=== PATIENT | male | born 1990 | race Caucasian/White ===

== ENCOUNTER 2016-08-26 20:35 | Emergency (ER) | payer OTHER ==
--- NOTE | 2016-08-26 22:43 | ED ORDER SUMMARY ---
..... 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
--- NOTE | 2016-08-26 22:43 | ED CLINICAL REPORT ---
Clinical Report - Physicians/Mid Levels [facility] [address] [place] [address] 08/26/2016 20:39 [id number] Time Seen: 21:18 Aug 26 2016. Arrived- By private vehicle. Historian- patient. HISTORY OF PRESENT ILLNESS Chief Complaint: COUGH. This started just prior to arrival and is still present. The illness is described as mild. The patient has had sputum production, a cough, nasal congestion, sinus drainage and a nasal discharge. No difficulty breathing, chest discomfort, fever or muscle aches. Additional history - The patient has had contact with a sick individual. (Patient here reports cough congestion fevers, body aches or arthralgias, was seen in the urgent care clinic, negative rapid influenza, however started treatment of tamiflu. fevers at home. NO hemoptysis. no foreign travel.). REVIEW OF SYSTEMS No headache, nausea, vomiting, hay fever or pedal edema. No calf pain. All systems otherwise negative, except as recorded above. PAST HISTORY Problems: Suicidal Ideation. Immunizations. Depression. Suicide Attempt. Mental Illness. Medications: CloNIDine HCl Oral. LamoTRIgine Oral. Allergies: No Known Drug Allergy. ADDITIONAL NOTES The nursing notes have been reviewed. PHYSICAL EXAM Vital Signs: 08/26/2016 20:44 BP: 131/68. HR: 120. RR: 18. O2 saturation: 99%. Temp: 100.0 F. Appearance: Alert. Eyes: Eyes normal inspection. ENT: Ears normal. Nose normal. Pharynx normal. Uvula midline. No mouth ulcerations or tonsillar exudate. Neck: Normal inspection. No lymphadenopathy. CVS: Normal heart rate and rhythm. Heart sounds normal. Respiratory: No respiratory distress. Breath sounds normal. Abdomen: Soft. No abdominal tenderness or rebound tenderness. Back: Normal inspection. No CVA tenderness. Skin: Skin warm. Normal skin color. Neuro: Oriented X 3. LABS, X-RAYS, AND EKG Laboratory Tests: CBC w Diff: (EUSEBIA: 08/26/2016 21:05) ( MsgRcvd 08/26/2016 21:22) Final results Test Result Flag Units (Reference) WHITE BLOOD COUNT 11.0 K/uL (4.5-11.5) RED BLOOD COUNT 4.67 M/uL (4.50-5.90) HEMOGLOBIN 15.0 gm/dL (13.5-17.5) HEMATOCRIT 43.7 % (41.0-53.0) MEAN CELL VOLUME 94 fL (80-100) MEAN CORPUSCULAR HGB 32 pg (26-34) MEAN CORPUSCULAR HGB CONC 34 g/dL (31-37) RED CELL DISTRIBUTION WIDTH 12.7 % (11.6-14.8) PLATELET COUNT 131 L K/uL (150-400) NEUTROPHIL % 77.8 H % (50-75) LYMPH % 8.1 L % (25-40) MONO % 13.3 % (3-14) EOSINOPHIL % 0.8 % (0-4) BASOPHIL % 0 % (0-2) . PROGRESS AND PROCEDURES Course of Care: here in the ER patient was flulike symptoms over the last 24 hours, given IV hydration. Tachycardia improved. Pt stable. Signs and sx consistent with influenza. 08/26/2016 22:51 BP: 133/72. HR: 101. RR: 18. O2 saturation: 96%. Temp: 98.4 F. Patient is stable. Physical exam findings are improved. Symptoms better. Patient/family counseled. Disposition: Discharged. CLINICAL IMPRESSION Acute viral syndrome INSTRUCTIONS Do not work for three days. Prescription Medications: Tylenol with Codeine Tylenol #3 (30 mg / 300 mg) : take 1-2 tablets orally every 6 hours. Dispense ten (10). No refill. Substitution is permissible. Zofran (orally disintegrating tablets) 4 mg: take 1 orally every 6 hours for 3 days as needed for nausea. Dispense ten (10). No refill. Substitution is permissible. (Electronically signed by uRpinder David P.A.-C 08/26/2016 23:02)
--- NOTE | 2016-08-26 22:43 | ED NURSING NOTES ---
Clinical Report - Nurses [facility] [address] [place] [address] 08/26/2016 20:39 Patient: MEETA VELÁSQUEZ TRIAGE Triage time 2044. Acuity: LEVEL 3. Chief Complaint: FEVER and "NOT FEELING WELL" and FATIGUE. --20:51 Bebeto Murdock R.N. 20:44 08/26/16. BP: 131/68. HR: 120. RR: 18. O2 saturation: 99%. Temp: 100.0 F. Pain level now 0/10. --20:51 Bebeto Murdock R.N. Weight: 93.4 kg stated. Height/Length: 73 inches Per Patient. BMI: 27.2. --20:50 Bebeto Murdock R.N. Medications LamoTRIgine Oral. --20:47 Bebeto Murdock R.N. CloNIDine HCl Oral. --20:47 Bebeto Murdock R.N. Allergies No Known Drug Allergy. --20:47 Bebeto Murdock R.N. History Arrived by private vehicle. Historian: significant other and patient. Accompanied by friend. This started yesterday. He has had a cough and headache. 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 (aleve). PAST MEDICAL HX: ( flu swab yesterday was negative.). FALL RISK ASSESSMENT: Fall risk assessment completed. No fall risk identified. NUTRITIONAL RISK ASSESSMENT: The nutritional risk assessment revealed no deficiencies. FUNCTIONAL ASSESSMENT: Functional assessment: no impairments noted. LEARNING NEEDS ASSESSMENT: The learning needs assessment revealed no barriers. SKIN INTEGRITY ASSESSMENT: Skin integrity risk assessment completed. No skin integrity risk identified. --20:51 Bebeto Murdock R.N. PROBLEMS: Suicidal Ideation. Immunizations. Depression. Suicide Attempt. Mental Illness. --20:47 Bebeto Murdock R.N. Interventions ID band on patient. --20:51 Bebeto Murdock R.N. PHYSICAL ASSESSMENT GENERAL / NEURO / PSYCH: Alert. Oriented X 4. He appears uncomfortable. HEENT: Pupils equal, round and reactive to light. Mucous membranes are pink. RESPIRATORY: Respirations not labored. CVS: Capillary refill less than 2 seconds. Pulses within normal limits. GI / : Abdomen soft and nontender. SKIN: Skin intact. Skin is warm and dry. Normal skin turgor. --20:52 Bebeto Murdock R.N. NURSING PROGRESS NOTES Head of bed elevated. Reassurance given. Patient identifiers checked. Call light placed in reach. Bed placed in lowest position. Brakes of bed on. --20:52 Bebeto Murdock R.N. 21:08/26/2016 Site #1 started via IV in the right antecubital space with an 20g angiocath, with aseptic technique and good blood return; one attempt. Blood drawn: rainbow set. Labeled in the presence of the patient and sent to the lab. Saline lock flushed with saline. --21: Bebeto Murdock R.N. 21:08/26/2016 Zofran (Ondansetron HCl) IVP 4 mg given. via site #1. Allergies verified and confirmed 5 rights. IV patency established. IV site checked: no pain, redness, or swelling. IV flushed thoroughly pre- and post-medication administration. --21: Bebeto Murdock R.N. 21:08/26/2016 Toradol IVP 30 mg given. via site #1. Allergies verified and confirmed 5 rights. IV patency established. IV site checked: no pain, redness, or swelling. IV flushed thoroughly pre- and post-medication administration. --21:10 Bebeto Murdock R.N. 21:10 08/26/2016 Started bag #1 2000 mL IV Fluids IV NS (Saline); bolus of 2000 mL wide open via site #1. Allergies verified and confirmed 5 rights. IV patency established. IV site checked: no pain, redness, or swelling. IV flushed thoroughly pre- and post-medication administration. --21:10 Bebeto Murdock R.N. 22:27 08/26/2016 IV Fluids IV NS Discontinued: bag #2 completed. Total amount infused: 2000 mL. IV patency established IV site checked: no pain, redness, or swelling IV flushed thoroughly. --22:27 Bebeto Murdock R.N. DISPOSITION / DISCHARGE 22:52 08/26/2016 Site #1 removed upon discharge. Pressure dressing applied. --22:52 Bibiana Sotomayor Departure time: 2250. Condition at departure: improved and stable. No learning barriers present. Discharge instructions provided and reviewed with the patient. Reviewed medication(s). Patient verbalized understanding. Written instructions provided in Uzbek. The patient was discharged by the physician licensed occupational therapy assistant. He was discharged home. He left the Emergency Department ambulatory and via private vehicle. Patient driving. --22:53 Bibiana Sotomayor 22:51 08/26/16. BP: 133/72. HR: 101. RR: 18. O2 saturation: 96%. Temp: 98.4 F. Pain level now 4/10. --22:53 Bibiana Sotomayor. Locked/Released at 08/26/2016 22:54 by Bibiana Sotomayor,
--- NOTE | 2016-08-26 22:43 | ED ORDER SUMMARY ---
..... 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
--- NOTE | 2016-08-26 22:43 | ED CLINICAL REPORT ---
Clinical Report - Physicians/Mid Levels [facility] [address] [place] [address] 08/26/2016 20:39 Patient: [id number] Time Seen: 21:18 Aug 26 2016. Arrived- By private vehicle. Historian- patient. HISTORY OF PRESENT ILLNESS Chief Complaint: COUGH. This started just prior to arrival and is still present. The illness is described as mild. The patient has had sputum production, a cough, nasal congestion, sinus drainage and a nasal discharge. No difficulty breathing, chest discomfort, fever or muscle aches. Additional history - The patient has had contact with a sick individual. (Patient here reports cough congestion fevers, body aches or arthralgias, was seen in the urgent care clinic, negative rapid influenza, however started treatment of tamiflu. fevers at home. NO hemoptysis. no foreign travel.). REVIEW OF SYSTEMS No headache, nausea, vomiting, hay fever or pedal edema. No calf pain. All systems otherwise negative, except as recorded above. PAST HISTORY Problems: Suicidal Ideation. Immunizations. Depression. Suicide Attempt. Mental Illness. Medications: CloNIDine HCl Oral. LamoTRIgine Oral. Allergies: No Known Drug Allergy. ADDITIONAL NOTES The nursing notes have been reviewed. PHYSICAL EXAM Vital Signs: 08/26/2016 20:44 BP: 131/68. HR: 120. RR: 18. O2 saturation: 99%. Temp: 100.0 F. Appearance: Alert. Eyes: Eyes normal inspection. ENT: Ears normal. Nose normal. Pharynx normal. Uvula midline. No mouth ulcerations or tonsillar exudate. Neck: Normal inspection. No lymphadenopathy. CVS: Normal heart rate and rhythm. Heart sounds normal. Respiratory: No respiratory distress. Breath sounds normal. Abdomen: Soft. No abdominal tenderness or rebound tenderness. Back: Normal inspection. No CVA tenderness. Skin: Skin warm. Normal skin color. Neuro: Oriented X 3. LABS, X-RAYS, AND EKG Laboratory Tests: CBC w Diff: (EUSEBIA: 08/26/2016 21:05) ( MsgRcvd 08/26/2016 21:22) Final results Test Result Flag Units (Reference) WHITE BLOOD COUNT 11.0 K/uL (4.5-11.5) RED BLOOD COUNT 4.67 M/uL (4.50-5.90) HEMOGLOBIN 15.0 gm/dL (13.5-17.5) HEMATOCRIT 43.7 % (41.0-53.0) MEAN CELL VOLUME 94 fL (80-100) MEAN CORPUSCULAR HGB 32 pg (26-34) MEAN CORPUSCULAR HGB CONC 34 g/dL (31-37) RED CELL DISTRIBUTION WIDTH 12.7 % (11.6-14.8) PLATELET COUNT 131 L K/uL (150-400) NEUTROPHIL % 77.8 H % (50-75) LYMPH % 8.1 L % (25-40) MONO % 13.3 % (3-14) EOSINOPHIL % 0.8 % (0-4) BASOPHIL % 0 % (0-2) . PROGRESS AND PROCEDURES Course of Care: here in the ER patient was flulike symptoms over the last 24 hours, given IV hydration. Tachycardia improved. Pt stable. Signs and sx consistent with influenza. 08/26/2016 22:51 BP: 133/72. HR: 101. RR: 18. O2 saturation: 96%. Temp: 98.4 F. Patient is stable. Physical exam findings are improved. Symptoms better. Patient/family counseled. Disposition: Discharged. CLINICAL IMPRESSION Acute viral syndrome INSTRUCTIONS Do not work for three days. Prescription Medications: Tylenol with Codeine Tylenol #3 (30 mg / 300 mg) : take 1-2 tablets orally every 6 hours. Dispense ten (10). No refill. Substitution is permissible. Zofran (orally disintegrating tablets) 4 mg: take 1 orally every 6 hours for 3 days as needed for nausea. Dispense ten (10). No refill. Substitution is permissible. (Electronically signed by Rupinder David P.A.-C 08/26/2016 23:02)
--- NOTE | 2016-08-26 22:43 | ED NURSING NOTES ---
Clinical Report - Nurses [facility] [address] [place] [address] 08/26/2016 20:39 Patient: MEETA VELÁSQUEZ TRIAGE Triage time 2044. Acuity: LEVEL 3. Chief Complaint: FEVER and "NOT FEELING WELL" and FATIGUE. --20:51 Bebeto Murdock R.N. 20:44 08/26/16. BP: 131/68. HR: 120. RR: 18. O2 saturation: 99%. Temp: 100.0 F. Pain level now 0/10. --20:51 Bebeto Murdock R.N. Weight: 93.4 kg stated. Height/Length: 73 inches Per Patient. BMI: 27.2. --20:50 Bebeto Murdock R.N. Medications LamoTRIgine Oral. --20:47 Bebeto Murdock R.N. CloNIDine HCl Oral. --20:47 Bebeto Murdock R.N. Allergies No Known Drug Allergy. --20:47 Bebeto Murdock R.N. History Arrived by private vehicle. Historian: significant other and patient. Accompanied by friend. This started yesterday. He has had a cough and headache. 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 (aleve). PAST MEDICAL HX: ( flu swab yesterday was negative.). FALL RISK ASSESSMENT: Fall risk assessment completed. No fall risk identified. NUTRITIONAL RISK ASSESSMENT: The nutritional risk assessment revealed no deficiencies. FUNCTIONAL ASSESSMENT: Functional assessment: no impairments noted. LEARNING NEEDS ASSESSMENT: The learning needs assessment revealed no barriers. SKIN INTEGRITY ASSESSMENT: Skin integrity risk assessment completed. No skin integrity risk identified. --20:51 Bebeto Murdock R.N. PROBLEMS: Suicidal Ideation. Immunizations. Depression. Suicide Attempt. Mental Illness. --20:47 Bebeto Murdock R.N. Interventions ID band on patient. --20:51 Bebeto Murdock R.N. PHYSICAL ASSESSMENT GENERAL / NEURO / PSYCH: Alert. Oriented X 4. He appears uncomfortable. HEENT: Pupils equal, round and reactive to light. Mucous membranes are pink. RESPIRATORY: Respirations not labored. CVS: Capillary refill less than 2 seconds. Pulses within normal limits. GI / : Abdomen soft and nontender. SKIN: Skin intact. Skin is warm and dry. Normal skin turgor. --20:52 Bebeto Murdock R.N. NURSING PROGRESS NOTES Head of bed elevated. Reassurance given. Patient identifiers checked. Call light placed in reach. Bed placed in lowest position. Brakes of bed on. --20:52 Bebeto Murdock R.N. 21:08/26/2016 Site #1 started via IV in the right antecubital space with an 20g angiocath, with aseptic technique and good blood return; one attempt. Blood drawn: rainbow set. Labeled in the presence of the patient and sent to the lab. Saline lock flushed with saline. --21: Bebeto Murdock R.N. 21:08/26/2016 Zofran (Ondansetron HCl) IVP 4 mg given. via site #1. Allergies verified and confirmed 5 rights. IV patency established. IV site checked: no pain, redness, or swelling. IV flushed thoroughly pre- and post-medication administration. --21: Bebeto Murdock R.N. 21:08/26/2016 Toradol IVP 30 mg given. via site #1. Allergies verified and confirmed 5 rights. IV patency established. IV site checked: no pain, redness, or swelling. IV flushed thoroughly pre- and post-medication administration. --21:10 Bebeto Murdock R.N. 21:10 08/26/2016 Started bag #1 2000 mL IV Fluids IV NS (Saline); bolus of 2000 mL wide open via site #1. Allergies verified and confirmed 5 rights. IV patency established. IV site checked: no pain, redness, or swelling. IV flushed thoroughly pre- and post-medication administration. --21:10 Bebeto Murdock R.N. 22:27 08/26/2016 IV Fluids IV NS Discontinued: bag #2 completed. Total amount infused: 2000 mL. IV patency established IV site checked: no pain, redness, or swelling IV flushed thoroughly. --22:27 Bebeto Murdock R.N. DISPOSITION / DISCHARGE 22:52 08/26/2016 Site #1 removed upon discharge. Pressure dressing applied. --22:52 Bibiana Sotomayor Departure time: 2250. Condition at departure: improved and stable. No learning barriers present. Discharge instructions provided and reviewed with the patient. Reviewed medication(s). Patient verbalized understanding. Written instructions provided in Stateless. The patient was discharged by the physician clinical physician assistant. He was discharged home. He left the Emergency Department ambulatory and via private vehicle. Patient driving. --22:53 Bibiana Sotomayor 22:51 08/26/16. BP: 133/72. HR: 101. RR: 18. O2 saturation: 96%. Temp: 98.4 F. Pain level now 4/10. --22:53 Bibiana Sotomayor. Locked/Released at 08/26/2016 22:54 by Bibiana Sotomayor,
--- NOTE | 2016-08-26 23:03 | ED MED RECONCILIATION SUMMARY ---
Patient: MEETA VELÁSQUEZ Medication Reconciliation Report [facility] VisitID: [id number] [address] [place] [address] 26y, M Registration Date/Time: 08/26/2016 Weight: 93.4 kg Height/Length: 73 in. BMI: 27.2 ALLERGIES: No Known Drug Allergy The patient's Home Medications are listed below: THE FOLLOWING MEDICATIONS NEED TO BE RECONCILED: CloNIDine HCl Oral LamoTRIgine Oral The source(s) of the original Home Medication information: Not obtained. The following Medications were given to the patient in the Emergency Department: Zofran [IVP] IVP 4 mg, administered: 08/26/2016 9:09:00 PM Toradol [IVP] IVP 30 mg, administered: 08/26/2016 9:09:00 PM IV NS IV Fluids bolus 2000 mL wide open, administered: 08/26/2016 9:10:00 PM The following Medications were prescribed to the patient: Tylenol with Codeine Tylenol #3 (30 mg / 300 mg) : take 1-2 tablets orally every 6 hours. Dispense ten (10). No refill. Substitution is permissible. -- Rupinder David P.AParveen-Zonia Zofran (orally disintegrating tablets) 4 mg: take 1 orally every 6 hours for 3 days as needed for nausea. Dispense ten (10). No refill. Substitution is permissible. -- Rupinder David P.AParveen-Zonia
--- NOTE | 2016-08-26 23:03 | ED MED RECONCILIATION SUMMARY ---
Patient: MEETA VELÁSQUEZ Medication Reconciliation Report [facility] VisitID: [id number] [address] [place] [address] 26y, M Registration Date/Time: 08/26/2016 Weight: 93.4 kg Height/Length: 73 in. BMI: 27.2 ALLERGIES: No Known Drug Allergy The patient's Home Medications are listed below: THE FOLLOWING MEDICATIONS NEED TO BE RECONCILED: CloNIDine HCl Oral LamoTRIgine Oral The source(s) of the original Home Medication information: Not obtained. The following Medications were given to the patient in the Emergency Department: Zofran [IVP] IVP 4 mg, administered: 08/26/2016 9:09:00 PM Toradol [IVP] IVP 30 mg, administered: 08/26/2016 9:09:00 PM IV NS IV Fluids bolus 2000 mL wide open, administered: 08/26/2016 9:10:00 PM The following Medications were prescribed to the patient: Tylenol with Codeine Tylenol #3 (30 mg / 300 mg) : take 1-2 tablets orally every 6 hours. Dispense ten (10). No refill. Substitution is permissible. -- Rupinder David P.AParveen-Zonia Zofran (orally disintegrating tablets) 4 mg: take 1 orally every 6 hours for 3 days as needed for nausea. Dispense ten (10). No refill. Substitution is permissible. -- Rupinder David P.AParveen-Zonia
--- NOTE | 2016-08-26 23:03 | ED MAR SUMMARY ---
..... Medication Administration Record [facility] [address] [place] [address] Patient: MEETA VELÁSQUEZ Visit ID: [id number] 26y, M Weight: 93.4 kg Height/Length: 73 in BMI: 27.2 ALLERGIES: No Known Drug Allergy Given 21:09 08/26/2016 Bebeto Murdock R.N. Medication Administered: TORADOL [IVP], Dose: 30 mg IVP, Site: #1 right AC. Medication Ordered: Toradol IV 30 mg (NOW). Given 21:09 08/26/2016 Bebeto Murdock R.N. Medication Administered: ZOFRAN [IVP] (ONDANSETRON HCL), Dose: 4 mg IVP, Site: #1 right AC. Medication Ordered: Zofran IV 4 mg (NOW). Start 21:10 08/26/2016 Bebeto Murdock R.N., Stop 22:27 08/26/2016 Bebeto Murdock R.N. Medication Administered: IV NS (SALINE), Dose: IV Fluids, Bolus: 2000 mL wide open, Dispensed: 2000 mL bag, Site: #1 right AC. Medication Ordered: IV NS : initial bolus 1000 mL (1000 mL/hr), then 1000 mL/hr for X1 (NOW); Adryan.
--- NOTE | 2016-08-26 23:03 | ED DISCHARGE INSTRUCTIONS ---
Patient: MEETA VELÁSQUEZ General Instructions [facility] VisitID: [id number] [place] [address] 26y, M Registration Date/Time: 08/26/2016 Acute viral syndrome INSTRUCTIONS Do not work for three days. Prescription Medications: Tylenol with Codeine Tylenol #3 (30 mg / 300 mg) : take 1-2 tablets orally every 6 hours. Dispense ten (10). No refill. Substitution is permissible. Zofran (orally disintegrating tablets) 4 mg: take 1 orally every 6 hours for 3 days as needed for nausea. Dispense ten (10). No refill. Substitution is permissible. ADDITIONAL INFORMATION Viral Syndrome (Adult) A viral illness may cause a number of symptoms. The symptoms depend on the part of the body that the virus affects. If it settles in the nose, throat, and lungs, it may cause cough, sore throat, congestion, and sometimes headache. If it settles in the stomach and intestinal tract, it may cause vomiting and diarrhea. Sometimes it causes vague symptoms like "aching all over," feeling tired, loss of appetite, or fever. A viral illness usually lasts1 to 2 weeks, but sometimes it lasts longer. In some cases, a more serious infection can look like a viral syndrome in the first few days of the illness. You may need anotherexam and additional teststo know the difference.Watch for the warning signs listed below. Home care Follow these guidelines for taking care of yourself at home: If symptoms are severe, rest at home for the first 2 to 3 days. Stay away from cigarette smoke - both your smoke and the smoke from others. You may useacetaminophen or ibuprofen for fever, muscle aching, and headache, unless another medicine was prescribed for this.If you have chronic liver or kidney disease or ever had a stomach ulcer or GI bleeding, talk with your doctor before using these medicinesNo one who is younger than 18 and ill with a fever should take aspirin. It may cause severe liver damage. Your appetite may be poor, so a light diet is fine. Avoid dehydration by drinking 8 to 12 8-ounce glasses of fluids each day. This may include water; orange juice; lemonade; apple, grape, and cranberry juice; clear fruit drinks; electrolyte replacement and sports drinks; and decaffeinated teas and coffee. If you have been diagnosed with a kidney disease, ask your doctor how much and what types of fluids you should drink to prevent dehydration. If you have kidney disease, drinking too much fluid can cause it build up in the your body and be dangerous to your health. Oohw-dei-ipyxayf remedies won't shorten the length of the illness but may be helpful forcough, sore throat; and nasal and sinus congestion. Don't use decongestants if you have high blood pressure. Follow-up care Follow up with your health care provider if you do not improve over the next week. When to seek medical care Get prompt medical attention if any of these occur: Cough with lots of colored sputum (mucus) or blood in your sputum Chest pain, shortness of breath, wheezing, or difficulty breathing Severe headache; face, neck, or ear pain Severe, constant pain in the lower right side of your belly (abdominal) Continued vomiting (cant keep liquids down) Frequent diarrhea (more than 5 times a day); blood (red or black color) or mucus in diarrhea Feeling weak, dizzy, or like you are going to faint Extreme thirst Fever of 100.4 F (38 C) oral or higher, not better with fever medication Convulsion Influenza (Adult) Influenza, also called the flu, is a viral illness that affects the air passages of the lungs. It differs from the common cold. It is highly contagious. It may be spread through the air by coughing and sneezing or by direct contact (touching the sick person and then touching your own eyes, nose or mouth). Illness starts 1-3 days after exposure and lasts for 1-2 weeks. Antibiotics are usually not needed unless a complication appears (ear or sinus infection or pneumonia). Symptoms may be mild or severe and can include extreme tiredness (wanting to stay in bed all day), chills, fevers, muscle aching, soreness with eye movement, headache, and a dry, hacking cough. Home Care: Avoid exposure to cigarette smoke (yours or others). Tylenol or ibuprofen (Advil) will help fever, muscle aching, and headache. To avoid risk of liver injury, aspirin should not be used in children and teenagers under 18 with this illness. Nausea and loss of appetite are common. A light diet is recommended. Avoid dehydration by drinking 6-8 glasses of fluids per day (water, sport drinks like Gatorade, soft drinks without caffeine, juices, tea, soup, etc.). Extra fluids will also help loosen secretions in the nose and lungs. Oppv-ebi-xmebfcy cold medicines will not shorten the duration of the illness but may be helpful for the following symptoms: cough (Robitussin DM); sore throat (Chloraseptic lozenges or spray); nasal and sinus congestion (Actifed or Sudafed). [NOTE: Do not use decongestants if you have high blood pressure.] Stay home until your fever has been gone for at least 24 hours (without the use of fever-reducing medications such as ibuprofen). Follow Up with your doctor or as directed by our staff if you are not improving over the next week. Note: If you are age 65 or older, or if you have chronic asthma or COPD, we recommend a pneumococcal vaccinationevery five years. All adults shouldreceive a yearly influenza vaccination every . Ask your doctor about this. Get Prompt Medical Attention if any of the following occur: Cough with lots of colored sputum (mucus) or blood in your sputum Chest pain, shortness of breath, wheezing, or difficulty breathing Severe headache, face, neck or ear pain New rash Fever of 100.4F (38C) oral or higher, not better with fever medication Confusion, behavior change or seizure Severe weakness or dizziness Acetaminophen, Codeine Phosphate Oral tablet What is this medicine? ACETAMINOPHEN; CODEINE (a set a SHELLY reuben fen; KOE oliver) is a pain reliever. It is used to treat mild to moderate pain. How should I use this medicine? Take this medicine by mouth with a full glass of water. Follow the directions on the prescription label. If the medicine upsets your stomach, take the medicine with food or milk. Do not take more medicine than you are told to take. Talk to your paramedical aide regarding the use of this medicine in children. Special care may be needed. What side effects may I notice from receiving this medicine? Side effects that you should report to your doctor or health clinical care leader as soon as possible: allergic reactions like skin rash, itching or hives, swelling of the face, lips, or tongue breathing difficulties, wheezing confusion light headedness or fainting spells severe stomach pain yellowing of the skin or the whites of the eyes Side effects that usually do not require medical attention (report to your doctor or health clinical care leader if they continue or are bothersome): dizziness drowsiness nausea, vomiting What may interact with this medicine? alcohol antihistamines benztropine drugs for bladder problems like solifenacin, trospium, oxybutynin, tolterodine, hycosamine, and methscopolamine drugs for breathing problems like ipratropium and tiotropium drugs for certain stomach or intestine problems like propantheline, homatropine methylbromide, glycopyrrolate, atropine, belladonna, and dicyclomine medicines for depression, anxiety, or psychotic disturbances medicines for sleep muscle relaxants naltrexone narcotic medicines (opiates) for pain phenothiazines like perphenazine, thioridazine, chlorpromazine, mesoridazine, fluphenazine, prochlorperazine, promazine, trifluoperazine scopolamine tramadol trihexyphenidyl What if I miss a dose? If you miss a dose, take it as soon as you can. If it is almost time for your next dose, take only that dose. Do not take double or extra doses. Where should I keep my medicine? Keep out of the reach of children. This medicine can be abused. Keep your medicine in a safe place to protect it from theft. Do not share this medicine with anyone. Selling or giving away this medicine is dangerous and against the law. Store at room temperature between 15 and 30 degrees C (59 and 86 degrees F). Protect from light. Keep container tightly closed. Throw away any unused medicine after the expiration date. Discard unused medicine and used packaging carefully. Pets and children can be harmed if they find used or lost packages. What should I tell my health care provider before I take this medicine? They need to know if you have any of these conditions: brain tumor Crohn's disease, inflammatory bowel disease, or ulcerative colitis drink more than 3 alcohol containing drinks per day drug abuse or addiction head injury heart or circulation problems kidney disease or problems going to the bathroom liver disease lung disease, asthma, or breathing problems an unusual or allergic reaction to acetaminophen, codeine, salicylates, other opioid analgesics, other medicines, foods, dyes, or preservatives or trying to get breast-feeding What should I watch for while using this medicine? Tell your doctor or health clinical care leader if your pain does not go away, if it gets worse, or if you have new or a different type of pain. You may develop tolerance to the medication. Tolerance means that you will need a higher dose of the medication for pain relief. Tolerance is normal and is expected if you take the medicine for a long time. Do not suddenly stop taking your medicine because you may develop a severe reaction. Your body becomes used to the medicine. This does NOT mean you are addicted. Addiction is a behavior related to getting and using a drug for a non medical reason. If you have pain, you have a medical reason to take pain medicine. Your doctor will tell you how much medicine to take. If your doctor wants you to stop the medicine, the dose will be slowly lowered over time to avoid any side effects. You may get drowsy or dizzy. Do not drive, use machinery, or do anything that needs mental alertness until you know how this medicine affects you. Do not stand or sit up quickly, especially if you are an older patient. This reduces the risk of dizzy or fainting spells. Alcohol may interfere with the effect of this medicine. Avoid alcoholic drinks. There are different types of narcotic medicines (opiates) for pain. If you take more than one type at the same time, you may have more side effects. Give your health care provider a list of all medicines you use. Your doctor will tell you how much medicine to take. Do not take more medicine than directed. Call emergency for help if you have problems breathing. The medicine will cause constipation. Try to have a bowel movement at least every 2 to 3 days. If you do not have a bowel movement for 3 days, call your doctor or health clinical care leader. Do not take Tylenol (acetaminophen) or medicines that have acetaminophen with this medicine. Too much acetaminophen can be very dangerous. Many nonprescription medicines contain acetaminophen. Always read the labels carefully to avoid taking more acetaminophen. Immediately call your physician or get emergency help if you are breast-feeding and your baby is sleepier than usual, is limp, or has difficulty or breathing. Ondansetron Hydrochloride Oral tablet What is this medicine? ONDANSETRON (on ABRAHAN se isis) is used to treat nausea and vomiting caused by chemotherapy. It is also used to prevent or treat nausea and vomiting after surgery. How should I use this medicine? Take this medicine by mouth with a glass of water. Follow the directions on your prescription label. Take your doses at regular intervals. Do not take your medicine more often than directed. Talk to your paramedical aide regarding the use of this medicine in children. Special care may be needed. What side effects may I notice from receiving this medicine? Side effects that you should report to your doctor or health clinical care leader as soon as possible: allergic reactions like skin rash, itching or hives, swelling of the face, lips or tongue breathing problems dizziness fast or irregular heartbeat feeling faint or lightheaded, falls fever and chills swelling of the hands or feet tightness in the chest Side effects that usually do not require medical attention (report to your doctor or health clinical care leader if they continue or are bothersome): constipation or diarrhea headache What may interact with this medicine? Do not take this medicine with any of the following medications: -apomorphine -cisapride -dofetilide -dronedarone -pimozide -thioridazine -ziprasidone This medicine may also interact with the following medications: -carbamazepine -phenytoin -rifampicin -tramadol -other medicines that prolong the QT interval (cause an abnormal heart rhythm) What if I miss a dose? If you miss a dose, take it as soon as you can. If it is almost time for your next dose, take only that dose. Do not take double or extra doses. Where should I keep my medicine? Keep out of the reach of children. Store between 2 and 30 degrees C (36 and 86 degrees F). Throw away any unused medicine after the expiration date. What should I tell my health care provider before I take this medicine? They need to know if you have any of these conditions: heart disease history of irregular heartbeat liver disease low levels of magnesium or potassium in the blood an unusual or allergic reaction to ondansetron, granisetron, other medicines, foods, dyes, or preservatives or trying to get breast-feeding What should I watch for while using this medicine? Check with your doctor or health clinical care leader right away if you have any sign of an allergic reaction. You have been given the following additional information: Viral Syndrome (Adult) Influenza (Adult) Acetaminophen, Codeine Phosphate Oral tablet Ondansetron Hydrochloride Oral tablet Do not work for three days. (Electronically signed by Rupinder David P.A.-C 08/26/2016 23:02)
--- NOTE | 2016-08-26 23:03 | ED MAR SUMMARY ---
..... Medication Administration Record [facility] [address] [place] [address] Patient: MEETA VELÁSQUEZ Visit ID: [id number] 26y, M Weight: 93.4 kg Height/Length: 73 in BMI: 27.2 ALLERGIES: No Known Drug Allergy Given 21:09 08/26/2016 Bebeto Murdock R.N. Medication Administered: TORADOL [IVP], Dose: 30 mg IVP, Site: #1 right AC. Medication Ordered: Toradol IV 30 mg (NOW). Given 21:09 08/26/2016 Bebeto Murdock R.N. Medication Administered: ZOFRAN [IVP] (ONDANSETRON HCL), Dose: 4 mg IVP, Site: #1 right AC. Medication Ordered: Zofran IV 4 mg (NOW). Start 21:10 08/26/2016 Bebeto Murdock R.N., Stop 22:27 08/26/2016 Bebeto Murdock R.N. Medication Administered: IV NS (SALINE), Dose: IV Fluids, Bolus: 2000 mL wide open, Dispensed: 2000 mL bag, Site: #1 right AC. Medication Ordered: IV NS : initial bolus 1000 mL (1000 mL/hr), then 1000 mL/hr for X1 (NOW); Adryan.
== END 2016-08-26 22:50 | disposition home or self-care (01) ==
LOC: ED SRH 20:35
DX: B34.9 Viral infection, unspecified (principal)
CPT/HCPCS: 95059